=== PATIENT | male | born 1980 | race Caucasian/White ===

== ENCOUNTER 2024-01-12 23:10 | Emergency (ER) | payer BC ==
[2024-01-12] MEDS: Tetracaine HCl/PF 0.5% 4 ML Bottle EYEBOTH ONE (23:31)
[2024-01-12] MEDS: Acetaminophen 500 MG Tab PO ONE (23:40)
[2024-01-12] MEDS ORDERED: Erythromycin Base 0.5% Ophth Oint 3.5 GM Tube ONE (23:50)
[2024-01-12] MEDS ORDERED: traMADol 50 MG Tab ONE (23:50)
[2024-01-13] MEDS: traMADol 50 MG Tab PO ONE (00:18)
[2024-01-13] MEDS: traMADol 50 MG Tab ONE (00:21)
[2024-01-13] MEDS: Fluorescein 1 MG Ophth Strip EYEBOTH ONE ×2 (00:21→01:14)
[2024-01-13] MEDS: Erythromycin Base 0.5% Ophth Oint 3.5 GM Tube EYEBOTH ONE (01:15)
== END 2024-01-13 00:37 | disposition home or self-care (01) ==
LOC: LB.ED 23:10
DX: T26.92XA Corrosion of left eye and adnexa, part unspecified, initial encounter (principal); T26.91XA Corrosion of right eye and adnexa, part unspecified, initial encounter; X58.XXXA Exposure to other specified factors, initial encounter
CPT/HCPCS: 99283; A9270-GY